=== PATIENT | male | born 1995 | race Caucasian/White ===

== ENCOUNTER 2018-01-06 18:37 | Emergency (ER) | payer MEDICAID, OTHER ==
[2018-01-06] MEDS ORDERED: Clindamycin 150 MG CAP ONE (19:32)
== END 2018-01-06 19:45 | disposition home or self-care (01) ==
LOC: BURERS 18:37
DX: L05.01 Pilonidal cyst with abscess (principal); J45.909 Unspecified asthma, uncomplicated; F17.210 Nicotine dependence, cigarettes, uncomplicated; F90.9 Attention-deficit hyperactivity disorder, unspecified type; Z79.899 Other long term (current) drug therapy
CPT/HCPCS: 10061

== ENCOUNTER 2018-01-13 15:37 | Emergency (ER) | payer MEDICAID | END 2018-01-13 17:20 | disposition home or self-care (01) | LOC: BURERS 15:37 | DX: L02.31 Cutaneous abscess of buttock (principal); L02.411 Cutaneous abscess of right axilla; J45.909 Unspecified asthma, uncomplicated; F17.210 Nicotine dependence, cigarettes, uncomplicated; F90.9 Attention-deficit hyperactivity disorder, unspecified type | CPT/HCPCS: 10061 ==

== ENCOUNTER 2020-03-06 19:18 | Emergency (ER) | payer MEDICAID, MEDICARE, OTHER ==
[2020-03-06] MEDS ORDERED: Lidocaine 1% PF 5 ML VIAL ONE (19:37)
== END 2020-03-06 20:00 | disposition home or self-care (01) ==
LOC: BURERS 19:18
DX: L02.412 Cutaneous abscess of left axilla (principal); Z79.899 Other long term (current) drug therapy; J45.909 Unspecified asthma, uncomplicated; F17.210 Nicotine dependence, cigarettes, uncomplicated; F90.9 Attention-deficit hyperactivity disorder, unspecified type
CPT/HCPCS: 10060

== ENCOUNTER 2020-06-09 00:05 | Emergency (ER) | payer OTHER ==
[2020-06-09] MEDS ORDERED: Lidocaine 1% w/Epinephrine 1:100K 20 ML VIAL ONE (00:26)
[2020-06-09] MEDS ORDERED: Doxycycline 100 MG CAP ONE (00:55)
== END 2020-06-09 01:02 | disposition home or self-care (01) ==
LOC: BURERS 00:05
DX: L02.01 Cutaneous abscess of face (principal); F17.210 Nicotine dependence, cigarettes, uncomplicated; Z79.899 Other long term (current) drug therapy
CPT/HCPCS: 10060

== ENCOUNTER 2021-02-06 21:07 | Emergency (ER) | payer OTHER ==
[2021-02-06] MEDS ORDERED: Clindamycin 150 MG CAP ONE (22:50)
== END 2021-02-06 22:54 | disposition home or self-care (01) ==
LOC: BURERS 21:07
DX: L02.411 Cutaneous abscess of right axilla (principal); R56.9 Unspecified convulsions; F17.210 Nicotine dependence, cigarettes, uncomplicated
CPT/HCPCS: 10060

== ENCOUNTER 2021-06-05 20:09 | Emergency (ER) | payer OTHER | END 2021-06-05 21:12 | disposition home or self-care (01) | LOC: BURERS 20:09 | DX: L02.412 Cutaneous abscess of left axilla (principal); L73.2 Hidradenitis suppurativa; F17.210 Nicotine dependence, cigarettes, uncomplicated | CPT/HCPCS: 99282 ==